=== PATIENT | male | born 1975 | race Caucasian/White ===

== ENCOUNTER 2016-06-29 22:15 | Emergency (ER) | payer OTHER ==
[~2016-06-29] VITALS: Ht 177.8 cm; Wt 104.3 kg
[2016-06-29 22:19] VITALS: BP 119/100
[2016-06-29] MEDS ORDERED: TETANUS,DIPTH,PERTUSS P/F (BOOSTRIX) 0.5 ML VIAL IM ONE (22:30)
[2016-06-29 22:34] LABS: BASOPHILS % (AUTO) 0 % (0-10); EOSINOPHILS # (AUTO) 0.1 10^3/uL (0.0-0.3); EOSINOPHILS % (AUTO) 1 % (0-10); LYMPHOCYTES # (AUTO) 2.4 X 10^3 (1.0-4.0); LYMPHOCYTES % (AUTO) 27 % (12-44); MEAN CORPUSCULAR HEMOGLOBIN 28 PG (25-34); MEAN CORPUSCULAR HGB CONC 34 G/DL (32-36); MEAN CORPUSCULAR VOLUME 82 FL (80-99); MEAN PLATELET VOLUME 9.8 FL (7.4-10.4); MONOCYTES # (AUTO) 0.7 X 10^3 (0.0-1.0); MONOCYTES % (AUTO) 8 % (0-12); NEUTROPHILS # (AUTO) 5.7 X 10^3 (1.8-7.8); NEUTROPHILS % (AUTO) 64 % (42-75); PLATELET COUNT 302 10^3/uL (130-400); RED BLOOD COUNT 5.17 10^6/uL (4.35-5.85); WHITE BLOOD COUNT 8.9 10^3/uL (4.3-11.0)
[2016-06-29 22:36] LABS: INR 1.2 (0.8-1.4)
[2016-06-29] MEDS ORDERED: NS 100 ML (IVPB) BAG IV ONE (22:45)
[2016-06-29] MEDS ORDERED: IOHEXOL 350 MG/ML 100 ML (OMNIPAQUE 350) VIAL IV ONE (22:45)
[2016-06-29 22:50] LABS: ALANINE AMINOTRANSFERASE 20 U/L (0-55); ANION GAP 10 MMOL/L (5-14); ASPARTATE AMINO TRANSFERASE 19 U/L (5-34); BILIRUBIN,TOTAL 0.7 MG/DL (0.1-1.0); BLOOD UREA NITROGEN 16 MG/DL (7-18); BUN/CREATININE RATIO 15; CARBON DIOXIDE 23 MMOL/L (21-32); CHLORIDE 106 MMOL/L (98-107); GFR ESTIMATED > 60; GLUCOSE 99 MG/DL (70-105); POTASSIUM 3.8 MMOL/L (3.6-5.0); SODIUM 139 MMOL/L (135-145); TOTAL PROTEIN 6.8 G/DL (6.4-8.2)
[2016-06-29 22:53] LABS: ALCOHOL < 10 MG/DL (<10)
[2016-06-29] MEDS ORDERED: NS IV 1000 ML 1,000 ML IV ONE (23:37)
[2016-06-29] MEDS ORDERED: KETOROLAC 30 MG/ML VIAL IVP ONE (23:45)
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
== END 2016-06-29 23:50 | disposition left against medical advice (07) ==
LOC: EDUNIT# 22:15 → ER 22:16
DX: S09.90XA Unspecified injury of head, initial encounter (principal); S22.42XA Multiple fractures of ribs, left side, initial encounter for closed fracture; S00.81XA Abrasion of other part of head, initial encounter; S80.02XA Contusion of left knee, initial encounter; Z23 Encounter for immunization; F15.10 Other stimulant abuse, uncomplicated; X99.9XXA Assault by unspecified sharp object, initial encounter; Y92.017 Garden or yard in single-family (private) house as the place of occurrence of the external cause; Y99.8 Other external cause status
CPT/HCPCS: 36415; 70450; 71020; 71100; 71260; 72125; 73562; 73630; 74177; 80053; 80320; 85025; 85610; 85730; 90471; 90715; 93041

== ENCOUNTER 2016-11-10 19:29 | Emergency (ER) | payer SELFPAY ==
[~2016-11-10] VITALS: Ht 180.3 cm; Wt 88.0 kg
[2016-11-10] MEDS: FLUORESCEIN (FLUOR-I-STRIPS) 1 MG STRP OU ONE (19:50)
[2016-11-10] MEDS: TETRACAINE 0.5% OPHTH SOLN 4 ML BTL (SINGLE DOSE ONLY) OP ONE (19:50)
[2016-11-10] MEDS: TETANUS,DIPTH,PERTUSS P/F (BOOSTRIX) 0.5 ML VIAL IM ONE (20:02)
[2016-11-10] MEDS ORDERED: TRAM-42 PO (20:03)
[2016-11-10] MEDS ORDERED: VIGAMOX OP (20:03)
--- NOTE | 2016-11-10 20:03 | ED EENT ---
History of Present Illness General Chief Complaint: Eye Problems Stated Complaint: RIGHT EYE INJURY Allergies and Home Medications Allergies Coded Allergies: No Known Drug Allergies (Unverified , 06/29/16) Home Medications No Active Prescriptions or Reported Meds Past Qhmvvha-Fzkihf-Ppgqez Hx Patient Social History Recent Foreign Travel: No Contact w/Someone Who Travel: No Recent Hopitalizations: No Immunizations Up To Date Tetanus Booster (TDap): Unknown Seasonal Allergies Seasonal Allergies: No Surgeries HX Surgeries: No Respiratory Hx Respiratory Disorders: Yes Respiratory Disorders: Asthma Cardiovascular Hx Cardiac Disorders: Yes (HAS BEEN PRESCRIBED MEDICATIONS FOR HTN, BUT PT DOES NOT TAKE THEM. ) Cardiac Disorders: Hypertension Neurological Hx Neurological Disorders: No Reproductive System Hx Reproductive Disorders: No Genitourinary Hx Genitourinary Disorders: No Gastrointestinal Hx Gastrointestinal Disorders: Yes Gastrointestinal Disorders: Ulcer Musculoskeletal Hx Musculoskeletal Disorders: No Endocrine Hx Endocrine Disorders: No HEENT HX ENT Disorders: No Cancer Hx Cancer: No Psychosocial Hx Psychiatric Problems: No Integumentary HX Skin/Integumentary Disorder: No Blood Transfusions Hx Blood Disorders: No Adverse Reaction to a Blood Tr: No Progress/Results/Core Measures Results/Orders My Orders Orders - HERLINDA HUYNH DO Dipht,Pertuss(Acell),Tet Adult (Boostrix (11/10/16 20:00) Departure Impression Impression: Primary Impression: Right corneal abrasion Additional Impression: Hrzlppkisf-jisusmgtu-vjzomyj (DPT) vaccination administered at current visit Disposition: 01 HOME, SELF-CARE Condition: Stable Departure-Patient Inst. Referrals: [facility] Patient Instructions: Corneal Abrasion (DC), Diphtheria and Tetanus Toxoids, and Acellular Pertussis Vaccine, How to Use Eye Drops Add. Discharge Instructions: DO NOT RUB EYE TYLENOL AND MOTRIN NEEDED FOR PAIN FOLLOW UP WITH [facility] OR [facility] TOMORROW FOR RECHECK All discharge instructions reviewed with patient and/or family. Voiced understanding. Scripts Tramadol HCl (Ultram) 50 Mg Tablet 50 MG PO Q4H, #20 TAB Prov: HERLINDA HUYNH DO 11/10/16 Moxifloxacin HCl (Vigamox) 3 Ml Soln 1 DROP OP TID for 7 Days, #1 EA Prov: HERLINDA HUYNH DO 11/10/16 HERLINDA HUYNH DO Nov 10, 2016 20:03
[2016-11-10 20:04] VITALS: BP 0/0
== END 2016-11-10 20:04 | disposition home or self-care (01) ==
LOC: EDUNIT# 19:29 → ER 19:31
DX: S05.01XA Injury of conjunctiva and corneal abrasion without foreign body, right eye, initial encounter (principal); Z23 Encounter for immunization; X58.XXXA Exposure to other specified factors, initial encounter; Y99.8 Other external cause status
CPT/HCPCS: 90715; 99282

== ENCOUNTER 2022-02-28 21:26 | Emergency (ER) | payer OTHER ==
[~2022-02-28] VITALS: Ht 180.3 cm; Wt 102.0 kg
[~2022-02-28 21:26] MED LIST: CYCL5TAB PO; MOXI3DRO28 OP; TRAM-42 PO
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
[2022-02-28 21:51] LABS: BASOPHILS # (AUTO) 0.1 10^3/uL (0.0-0.1); BASOPHILS % (AUTO) 0 % (0-10); EOSINOPHILS % (AUTO) 0 % (0-10); HEMATOCRIT 42 % (40-54); HEMOGLOBIN 14.1 g/dL (13.3-17.7); LYMPHOCYTES # (AUTO) 2.5 10^3/uL (1.0-4.0); LYMPHOCYTES % (AUTO) 16 % (12-44); MEAN CORPUSCULAR HEMOGLOBIN 27 pg (25-34); MEAN CORPUSCULAR HGB CONC 33 g/dL (32-36); MEAN CORPUSCULAR VOLUME 82 fL (80-99); MEAN PLATELET VOLUME 9.6 fL (9.0-12.2); MONOCYTES # (AUTO) 0.9 10^3/uL (0.0-1.0); MONOCYTES % (AUTO) 6 % (0-12); NEUTROPHILS % (AUTO) 77 % (42-75); PLATELET COUNT 284 10^3/uL (130-400); WHITE BLOOD COUNT 15.6 10^3/uL (4.3-11.0)
[2022-02-28 22:15] LABS: BILIRUBIN,TOTAL 0.2 MG/DL (0.1-1.0); CALCIUM 9.6 MG/DL (8.5-10.1); CREATININE SERUM 1.14 MG/DL (0.60-1.30); POTASSIUM 3.8 MMOL/L (3.6-5.0); TOTAL PROTEIN 7.1 GM/DL (6.4-8.2)
[2022-02-28 22:16] LABS: LYMPHOCYTES % (MANUAL) 10 %; MONOCYTES % (MANUAL) 8 %; NEUTROPHILS % (MANUAL) 82 %; RBC MORPH NORMAL
[2022-02-28] MEDS ORDERED: RX-ONDANSETRON 4 MG ODT (ZOFRAN) PPK #4 PO STA (22:25)
[2022-02-28] MEDS ORDERED: IBUP-1780 PO (22:29)
[2022-02-28] MEDS ORDERED: ACET325T38 PO (22:29)
[2022-02-28] MEDS ORDERED: CEPH500T PO (22:29)
[2022-02-28] MEDS ORDERED: TETANUS,DIPTH,PERTUSS P/F (BOOSTRIX) 0.5 ML VIAL IM ONE (22:30)
[2022-02-28] MEDS ORDERED: ACETAMINOPHEN 325 MG TABLET PO ONE (22:30)
[2022-02-28] MEDS ORDERED: fentaNYL INJ 100 MCG/2 ML AMP IVP ONE (22:30)
[2022-02-28] MEDS ORDERED: IBUPROFEN 800 MG (MOTRIN) TAB PO ONE (22:30)
[2022-02-28] MEDS ORDERED: cefTRIAXone 1 GM PRE-MIX 50 ML IV ONE (22:30)
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
[2022-02-28] MEDS ORDERED: HYDROcodone/APAP 5 MG/325 MG (LORTAB) TAB PO ONE (22:45)
[2022-02-28] MEDS ORDERED: HOLD METFORMIN - RECEIVED CONTRAST 20 ML VIAL IV SCH (23:45)
[2022-02-28] MEDS ORDERED: NS 100 ML (IVPB) BAG IV ONE (23:45)
[2022-02-28] MEDS ORDERED: IOHEXOL 350 MG/ML 100 ML (OMNIPAQUE 350) VIAL IV ONE (23:45)
[2022-03-01 00:35] VITALS: BP 114/77
== END 2022-03-01 00:35 ==
LOC: EDUNIT# 21:26 → ER 21:28
DX: S06.0X9A Concussion with loss of consciousness of unspecified duration, initial encounter (principal); S02.32XA Fracture of orbital floor, left side, initial encounter for closed fracture; H11.32 Conjunctival hemorrhage, left eye; Z23 Encounter for immunization; Y04.0XXA Assault by unarmed brawl or fight, initial encounter; Y92.149 Unspecified place in prison as the place of occurrence of the external cause
CPT/HCPCS: 36415; 70450; 70486; 71260; 72125; 74177; 80053; 85007; 85027; 90715

== ENCOUNTER 2022-03-03 05:34 | Outpatient (CLI) | payer OTHER ==
[~2022-03-03] VITALS: Ht 180.3 cm; Wt 99.7 kg
[~2022-03-03 05:34] MED LIST changes: +ACET325T38 PO; +CEPH500T PO; +IBUP-1780 PO
[2022-03-03] MEDS ORDERED: HYDR25TA4 PO (09:24)
== END 2022-03-03 09:34 ==
LOC: PREOP 05:34
PROVIDERS: ATTEND Specialist
DX: Z01.818 Encounter for other preprocedural examination (principal)

== ENCOUNTER 2022-03-07 08:27 | Day surgery (SDC) | payer OTHER ==
[2022-03-07] VITALS (11 sets, daily range): BP systolic 102–124; BP diastolic 73–83
[~2022-03-07] VITALS: Ht 180.3 cm; Wt 99.7 kg
[~2022-03-07 08:27] MED LIST changes: +HYDR25TA4 PO
[2022-03-07] MEDS: LACTATED RINGERS 1,000 ML IV PRN ×2 (09:05→12:23)
[2022-03-07] MEDS ORDERED: CLINDAMYCIN 600 MG/50 ML IVPB 50 ML IV ONE ×2 (09:15→09:18)
[2022-03-07] MEDS ORDERED: LIDOCAINE PF 2% 5 ML (XYLOCAINE) VIAL ONE (10:56)
[2022-03-07] MEDS ORDERED: ONDANSETRON 4 MG/2 ML (SDV) Z0FRAN ONE (10:56)
[2022-03-07] MEDS ORDERED: MIDAZOLAM 2 MG/2 ML (VERSED) VIAL ONE (10:56)
[2022-03-07] MEDS ORDERED: ROCURONIUM 10 MG/ML 5 ML SYRINGE IV ONE (10:56)
[2022-03-07] MEDS ORDERED: fentaNYL INJ 100 MCG/2 ML AMP ONE (10:56)
[2022-03-07] MEDS ORDERED: proPOfol 200 MG/20 ML (DIPRIVAN) VIAL IV ONE (10:56)
[2022-03-07] MEDS ORDERED: LIDOCAINE/EPI 2% 1:200,00 (XYLOCAINE) 10 ML VIAL ONE (11:09)
[2022-03-07] MEDS ORDERED: NEO/POLY/BACI (NEOSPORIN) OPHTH OINT 3.5 GM ONE (11:09)
[2022-03-07] MEDS ORDERED: ROPIVACAINE 5MG/ML 30ML VIAL ONE (11:09)
[2022-03-07] MEDS ORDERED: BSS 15 ML ONE (11:10)
--- NOTE | 2022-03-07 11:37 | History & Physical-Surgical ---
HPO-Surgical History of Present Illness Chief Complaint: pain left eye, nasal bones Diagnosis/Surgical Indication: LEFT ORBITAL FLOOR FRACTURE, CLOSED NASAL BONE FRACTURE Procedure: ORIF LEFT ORBITAL FLOOR FRACTURE CLOSED REDUCTION OF NASAL FRACTURE Date of Surgery: Mar 07, 2022 Weight (Pounds): 220 Height (Feet): 5 Height (Inches): 11.00 Allergies and Home Medications Allergies Coded Allergies: Penicillins (Verified Allergy, Unknown, RASH, 03/03/22) Patient Home Medication List Acetaminophen (Tylenol) 325 Mg Tablet, 500 MG PO Q6H PRN for PAIN-SEVERE (8-10) Prescribed by: ALISON DAVIS on 02/28/222228 Cephalexin (Cephalexin) 500 Mg Tablet, 500 MG PO TID Prescribed by: ALISON DAVIS on 02/28/222228 Cyclobenzaprine HCl (Cyclobenzaprine HCl) 5 Mg Tablet, 5 MG PO TID PRN for PAIN- MODERATE TO SEVERE Prescribed by: ALISON DAVIS on 10/03/17 1232 Hydrochlorothiazide (Hydrochlorothiazide) 25 Mg Tablet, 25 MG PO DAILY, (Reported) Entered as Reported by: PANTERA MIMS on 03/03/22 0924 Ibuprofen (Ibuprofen) 800 Mg Tablet, 800 MG PO Q8H PRN for PAIN Prescribed by: ALISON DAVIS on 02/28/222228 Past Zbqznqw-Dztkrz-Aigfyy Hx Patient Social History Alcohol Beverage of Choice: Beer Smoking Status: Never a Smoker Recent Hopitalizations: No Immunizations Up To Date Tetanus Booster (TDap): Unknown Seasonal Allergies Seasonal Allergies: No Surgeries No Respiratory Yes Cardiovascular Yes Hypertension Neurological No Reproductive System Hx Reproductive Disorders: No Genitourinary No Gastrointestinal Yes Ulcer Musculoskeletal Yes (LEFT ORBITAL FRACTURE, CLOSED NASAL FX) Fractures Endocrine History of Endocrine Disorders: No HEENT History of HEENT Disorders: No Cancer No Psychosocial History of Psychiatric Problem: No Integumentary History of Skin or Integumenta: No Blood Transfusions History of Blood Disorders: No Adverse Reaction to a Blood Tr: No Exam Vital Signs Vital Signs 03/07/22 08:40 Temp 36.0 Pulse 63 Resp 20 B/P (MAP) 124/78 (93) Pulse Ox 98 O2 Delivery Room Air Capillary Refill : JESSICA TURCIOS DDS Mar 07, 2022 11:36
[2022-03-07] MEDS ORDERED: PHENYLEPHRINE 0.5% NASAL SPR (NEO-SYNEPHRINE) REG ONE (11:58)
[2022-03-07] MEDS ORDERED: SEVOFLURANE (ULTANE) 15 ML INHAL SOLN ONE ×2 (12:56→13:13)
[2022-03-07] MEDS ORDERED: HYDROcodone/APAP 7.5MG-325 MG/15 ML (LORTAB) UDC PO PRN ×2 (13:15)
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
--- NOTE | 2022-03-07 13:21 | Progress Note-Post Operative ---
Post-Operative Progess Note Surgeon (s)/Senior Staff Psychologist (s) Surgeon JESSICA TURCIOS DDS Senior Staff Psychologist: jani jean Pre-Operative Diagnosis left oribal floor fx, nasal bones fx Post-Operative Diagnosis same Procedure & Operative Findings Date of Procedure 03/07/22 Procedure Performed/Findings orif left orbital floor fx, closed reduction nasal bones fx Anesthesia Type geta Estimated Blood Loss Estimated blood loss (mL): minimal Specimens/Packing Specimens Removed none Packing: none JESSICA TURCIOS DDS Mar 07, 2022 13:21
[2022-03-07] MEDS ORDERED: HYDROmorphone 2 MG/ML VIAL (DILAUDID) IV ONE (13:30)
[2022-03-07] MEDS ORDERED: PROMETHAZINE INJ 25 MG/ML (PHENERGAN) AMP IVP ONE (13:30)
[2022-03-07] MEDS ORDERED: MEPERIDINE (DEMEROL) INJ 50 MG/ML IVP ONE (13:30)
[2022-03-07] MEDS ORDERED: morphine INJ 10 MG/ML 1ML (SYR OR VIAL) IVP ONE (13:30)
[2022-03-07] MEDS ORDERED: ONDANSETRON 4 MG/2 ML (SDV) Z0FRAN IVP PRN (13:30)
[2022-03-07] MEDS ORDERED: morphine INJ 10 MG/ML 1ML (SYR OR VIAL) ONE (13:34)
--- NOTE | 2022-03-07 13:57 | Anesthesia-General Post-Op ---
General Patient Condition Mental Status/LOC: Same as Preop Cardiovascular: Satisfactory Nausea/Vomiting: Absent Respiratory: Satisfactory Pain: Controlled Complications: Absent Post Op Complications Complications None Follow Up Care/Instructions Patient Instructions None needed. Anesthesia/Patient Condition Patient Condition Patient is doing well, no complaints, stable vital signs, no apparent adverse anesthesia problems. No complications reported per nursing. TAWNY BRASHER CASING SPLITTER Mar 07, 2022 13:57
[2022-03-07] MEDS ORDERED: IBUP-2380 PO (14:40)
[2022-03-07] MEDS ORDERED: AZIT500T2 PO (14:40)
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
== END 2022-03-07 15:10 | disposition home or self-care (01) ==
LOC: SDC 08:27
PROVIDERS: ATTEND Specialist
DX: S02.32XA Fracture of orbital floor, left side, initial encounter for closed fracture (principal); S02.2XXB Fracture of nasal bones, initial encounter for open fracture
CPT/HCPCS: 87081